=== PATIENT | female | born 1960 | race Caucasian/White ===

== ENCOUNTER 2023-03-15 20:44 | Inpatient (IN) | payer MEDICAID, OTHER ==
[~2023-03-15] VITALS: Ht 170.2 cm; Wt 54.5 kg
[2023-03-15] MEDS ORDERED: SUCCINYLCHOLINE CHLORIDE 20 MG/ML 10ML VIAL IV ONE (20:48)
[2023-03-15] MEDS ORDERED: ETOMIDATE (2MG/ML) 20ML VIAL IV ONE (20:49)
[2023-03-15] MEDS ORDERED: NALOXONE HCL 1MG/ML 2ML SYRINGE ONE (20:53)
[2023-03-15] MEDS ORDERED: MIDAZOLAM DRIP 50 mg/50mL 50 ML IV ONE (20:54)
[2023-03-15] MEDS: MIDAZOLAM DRIP 50 mg/50mL 50 ML IV SCH (20:55)
[2023-03-15 21:00] VITALS: PULSE 121; RESP 18; O2SAT 100
[2023-03-15] MEDS ORDERED: MIDAZOLAM HCL 2MG/2ML 2ml VIAL (1mg/ml) IV ONE (21:00)
[2023-03-15] MEDS ORDERED: PIPERACILLIN-TAZO 4.5GM 100 ML IV ONE (21:00)
[2023-03-15] MEDS: NOREPINEPHRINE 8 MG/250ML KIT 250 ML IV SCH (21:00)
[2023-03-15] MEDS ORDERED: SODIUM CHLORIDE 0.9% 1,000 ML IV ONE ×2 (21:00→23:15)
[2023-03-15] MEDS ORDERED: NOREPINEPHRINE 8 MG/250ML KIT 250 ML IV ONE (21:01)
[2023-03-15] MEDS ORDERED: NALOXONE HCL 1MG/ML 2ML SYRINGE IV ONE (21:15)
[2023-03-15] MEDS ORDERED: VANCOMYCIN PER PHARMACY 0 MG IV SCH (21:15)
[2023-03-15 21:22] LABS: Basophils # (auto) 0 10 ^3/uL (0-0.2); Basophils % (auto) 0.1 % (0.0-2.0); Eosinophils # (auto) 0 10 ^3/uL (0-0.8); Hemoglobin 14.6 g/dL (12.2-16.2); Lymphocytes # (auto) 0.8 10 ^3/uL (0.4-5.4); Mean Corpuscular Hemoglobin 27.2 pg (28.0-32.0); Mean Corpuscular Hgb Conc. 31.1 g/dL (32.0-36.0); Mean Corpuscular Volume 87.4 fL (80.0-100.0); Monocytes % (auto) 6.6 % (0.0-12.0); Neutrophils # (auto) 13.5 10 ^3/uL (1.6-8.6); Neutrophils % (auto) 88.3 % (37.0-80.0); Nucleated Red Blood Cells % 0.1 %; Red Blood Cells 5.38 10^6/uL (4.0-5.20); Red Cell Distribution Width 16.1 % (11.8-14.3); White Blood Cell 15.3 10^3/uL (4.4-10.8)
[2023-03-15] MEDS ORDERED: VANCOMYCIN 750mg/250ml 250 ML IV ONE (21:30)
[2023-03-15 21:44] LABS: INR 1.44 (0.9-1.15); Partial Thromboplastin Time 30.8 SEC (24.5-34.5)
[2023-03-15 21:46] LABS: Alanine Aminotransferase 29 U/L (7-40); Albumin 3.8 g/dL (3.2-4.8); Alkaline Phosphatase 190 U/L (46-116); Anion Gap 5 (5-15); Aspartate Aminotransferase 38 U/L (13-40); BUN/Creatinine Ratio 35.9 (10.0-20.0); Bilirubin, Total 1.1 mg/dL (0.2-1.0); Blood Urea Nitrogen 23 mg/dL (9-23); Calcium 8.6 mg/dL (8.7-10.4); Carbon Dioxide 34 mmol/L (20-30); Chloride 95 mmol/L (98-107); Glucose 191 mg/dL (74-106); Potassium 4.6 mmol/L (3.5-5.1); Sodium 134 mmol/L (136-145); Total Protein 6.4 g/dL (5.7-8.2)
[2023-03-15 21:57] LABS: Lactic Acid w/Reflex 2.8 mmol/L (0.4-2.0)
[2023-03-15 22:06] LABS: Urine Bacteria MANY /hpf (None Seen); Urine Blood Negative /uL (Negative); Urine Clarity CLOUDY (Clear); Urine Color PINK (Yellow); Urine Protein, UAD 4+ (Negative); Urine Specific Gravity 1.019 (1.001-1.035); Urine WBC 31 /hpf (0 - 5); Urine pH 8.5 (5.0-8.0)
[2023-03-15] MEDS ORDERED: PHENYLEPHRINE IV 250 ML IV ONE (22:15)
[2023-03-15 22:30] LABS: Base Excess -2.7 mmol/L (-2.0-2.0)
[2023-03-15] MEDS ORDERED: VANCOMYCIN 1GM/200ML 200 ML IV ONE (23:30)
[2023-03-16] VITALS (57 sets, daily range): BP systolic 62–235; BP diastolic 16–164; PULSE 102–127; RESP 18–45; TEMP 98.6–100.6; O2SAT 75–100
[2023-03-16 01:01] LABS: COVID19 ANTIGEN SOFIA FIA NEGATIVE (NEGATIVE); Rapid Influenza A Negative (Negative); Rapid Influenza B Negative (Negative)
[2023-03-16] MEDS ORDERED: SUCCINYLCHOLINE CHLORIDE 20 MG/ML 10ML VIAL IV ONE (02:00)
[2023-03-16] MEDS ORDERED: ETOMIDATE (2MG/ML) 20ML VIAL IV ONE (02:00)
[2023-03-16] MEDS ORDERED: HEPARIN SODIUM (PORCINE) 5000 UNITS/ML 1ML VIAL IV STA (03:37)
[2023-03-16] MEDS ORDERED: VANCOMYCIN PER PHARMACY 0 MG IV SCH (03:45)
[2023-03-16] MEDS ORDERED: DEXTROSE (50%) 50ML SYRG IV PRN (03:45)
[2023-03-16] MEDS ORDERED: SODIUM CHLORIDE 0.9% 1,000 ML IV SCH (03:45)
[2023-03-16] MEDS ORDERED: HEPARIN SODIUM (PORCINE) 5000 UNITS/ML 1ML VIAL IV ONE (03:45)
[2023-03-16] MEDS: PIPERACILLIN-TAZOB 3.375GM 100 ML IV SCH ×3 (05:52→22:00)
[2023-03-16] MEDS: ACCU-CHEK COMFORT CURVE STRIP VI SCH ×3 (06:00→18:22)
[2023-03-16] MEDS: InsuLIN REG 1unit/0.01ml Soln (100units/ml) SC SCH ×3 (06:00→18:00)
[2023-03-16 06:30] LABS: Anion Gap 13 (5-15); Carbon Dioxide 21 mmol/L (20-30); Chloride 101 mmol/L (98-107); Potassium 4.4 mmol/L (3.5-5.1); Sodium 135 mmol/L (136-145)
[2023-03-16 06:31] LABS: Calcium 7.7 mg/dL (8.7-10.4)
[2023-03-16 06:36] LABS: Blood Urea Nitrogen 18 mg/dL (9-23); Glucose 143 mg/dL (74-106)
[2023-03-16 06:52] LABS: Base Excess -10.6 mmol/L (-2.0-2.0)
[2023-03-16 06:56] LABS: Hemoglobin 13.3 g/dL (12.2-16.2); Mean Corpuscular Hemoglobin 27.6 pg (28.0-32.0); Red Blood Cells 4.84 10^6/uL (4.0-5.20); Red Cell Distribution Width 16.4 % (11.8-14.3); White Blood Cell 19.8 10^3/uL (4.4-10.8)
[2023-03-16] MEDS: SODIUM CHLORIDE 0.9% 1,000 ML IV SCH ×2 (06:56→13:45)
[2023-03-16 07:11] LABS: Basophils % (manual) 0 (0.0-2.0); Blast Cells 0; Eosinophils % (manual) 0 (0-7); Myelocytes % 0; Promyelocytes % 0; Reactive Lymphocytes 0
[2023-03-16] MEDS: NOREPINEPHRINE 8 MG/250ML KIT 250 ML IV SCH ×2 (08:02→18:22)
[2023-03-16 08:51] LABS: Band Neutrophils % (manual) 22; Lymphocytes % (manual) 7 (10.0-50.0); Metamyelocytes % 18; Monocytes % (manual) 8 (0-12)
[2023-03-16 08:52] LABS: Platelet Estimate Adequate
[2023-03-16] MEDS: PHENYLEPHRINE IV 250 ML IV SCH ×2 (11:30→19:50)
[2023-03-16] MEDS: MIDAZOLAM DRIP 50 mg/50mL 50 ML IV SCH (11:36)
[2023-03-16] MEDS ORDERED: VANCOMYCIN 1GM/200ML 200 ML IV SCH ×2 (12:00→17:00)
[2023-03-16 14:23] LABS: Lactic Acid w/Reflex 4.5 mmol/L (0.4-2.0)
[2023-03-16] MEDS ORDERED: EPINEPHrine HCL 1 MG/10 ML SYRG IV ONE (20:32)
[2023-03-16] MEDS ORDERED: SODIUM BICARBONATE 8.4% INJ 50ML SYRINGE IV ONE (20:32)
== END 2023-03-16 20:33 | DRG 720 ==
LOC: ER 20:44 → EDBD 20:44 → TELE 03-16 03:43
PROVIDERS: ADMIT Internal Medicine Pulmonary Disease; ATTEND Internal Medicine Pulmonary Disease
PROC: 5A1935Z Respiratory Ventilation, Less than 24 Consecutive Hours (ICD-10-PCS; principal; 2023-03-16)
PROC: 0BH17EZ Insertion of Endotracheal Airway into Trachea, Via Natural or Artificial Opening (ICD-10-PCS; 2023-03-16)
PROC: 5A12012 Performance of Cardiac Output, Single, Manual (ICD-10-PCS; 2023-03-16)
DX: A41.9 Sepsis, unspecified organism (principal); I46.9 Cardiac arrest, cause unspecified; I26.99 Other pulmonary embolism without acute cor pulmonale; J96.01 Acute respiratory failure with hypoxia; R65.21 Severe sepsis with septic shock; J18.9 Pneumonia, unspecified organism; I82.431 Acute embolism and thrombosis of right popliteal vein; E87.20 Acidosis, unspecified; I21.A1 Myocardial infarction type 2; J43.2 Centrilobular emphysema; J44.0 Chronic obstructive pulmonary disease with (acute) lower respiratory infection; J98.11 Atelectasis; N39.0 Urinary tract infection, site not specified; Z20.822 Contact with and (suspected) exposure to COVID-19; M79.7 Fibromyalgia; Z88.0 Allergy status to penicillin
CPT/HCPCS: 31500; 36415; 36556; 36600; 71045; 80048; 80053; 81001; 82805; 82962; 83605; 83880; 84484; 85007; 85025; 85027; 85379; 85610; 85730; 87040; 87070; 87077; 87086; 87147; 87186; 87205; 87426; 87804; 92950; 93005; 93970; 94002; 94003; 99291; G0378; J0330; J1815; J2250; J2543